=== PATIENT | female | born 1950 | race Caucasian/White ===

== ENCOUNTER → 2019-11-16 | Outpatient (REF) | payer MEDICARE ==
[~2019-11-16] MED LIST: ACET-683 PO; ASPI81TA26 PO; ATOR1TAB21 PO; BIOFTAB PO; IRON325T PO; TRAZ-252 PO; multivitamin PO
== END ==
LOC: M LAB REF 16:03
PROVIDERS: ATTEND Physician Assistant
DX: R30.0 Dysuria (principal); R31.9 Hematuria, unspecified

== ENCOUNTER → 2020-02-10 | Outpatient (CLI) | payer SELFPAY | LOC: M LABSMTC 13:22 | PROVIDERS: ATTEND Pediatrics | DX: Z11.59 Encounter for screening for other viral diseases (principal) ==

== ENCOUNTER → 2022-01-10 | Outpatient (CLI) | payer MEDICARE | LOC: M RAD 11:45 | PROVIDERS: ATTEND Physician Assistant | DX: I65.23 Occlusion and stenosis of bilateral carotid arteries (principal) ==

== ENCOUNTER → 2022-11-09 | Outpatient (REF) | payer SELFPAY, OTHER | LOC: M LAB REF 11:19 | PROVIDERS: ATTEND Nurse Practitioner Family | DX: L03.317 Cellulitis of buttock (principal) ==

== ENCOUNTER → 2023-09-04 | Outpatient (CLI) | payer MEDICARE | LOC: M WHC 10:29 | PROVIDERS: ATTEND Internal Medicine | DX: Z12.31 Encounter for screening mammogram for malignant neoplasm of breast (principal); Z13.820 Encounter for screening for osteoporosis; M85.851 Other specified disorders of bone density and structure, right thigh; M85.852 Other specified disorders of bone density and structure, left thigh; M85.88 Other specified disorders of bone density and structure, other site ==

== ENCOUNTER → 2023-11-26 | Outpatient (CLI) | payer MEDICARE | LOC: M WUC 11:40 | PROVIDERS: ATTEND Internal Medicine | DX: R05.9 Cough, unspecified (principal); Z86.16 Personal history of COVID-19; J98.11 Atelectasis; J98.4 Other disorders of lung ==

== ENCOUNTER → 2024-09-08 | Outpatient (CLI) | payer MEDICARE | LOC: M WHC 07:50 | PROVIDERS: ATTEND Internal Medicine | DX: Z12.31 Encounter for screening mammogram for malignant neoplasm of breast (principal) ==